=== PATIENT | female | born 1990 | race Caucasian/White ===

== ENCOUNTER → 2017-06-22 | Outpatient (CLI) | payer OTHER ==
[2017-06-22 14:42] LABS: BASO % 0.2 %; BASO ABS # 0.03 K/uL (0-0.2); COMPLETE YES; EOS % 2.4 %; HEMATOCRIT 35.5 % (37-47); IG% 0.2 %; LYMPH % 22.9 %; LYMPH ABS # 3.04 K/uL (1.2-3.4); MEAN CELL VOLUME 82.9 fL (80-100); MEAN CORPUSCULAR HEMOGLOBIN 27.8 pg (25-34); MEAN CORPUSCULAR HGB CONC 33.5 g/dl (32-36); MEAN PLATELET VOLUME 9.3 fL (7.4-10.4); MONO % 6.7 %; NEUT % 67.6 %; PLATELET COUNT 306 K/uL (130-400); RED BLOOD COUNT 4.28 M/uL (4.2-5.4); WHITE BLOOD COUNT 13.28 K/uL (4.8-10.8)
[2017-06-25 04:29] LABS: CHLAMYDIA TRACH RNA*** NOT DETECTED (NOT DETECTED); GC (NEIS GONORRHOEAE)RNA** NOT DETECTED (NOT DETECTED)
== END | disposition home or self-care (01) ==
LOC: C.LAB1850 12:46
PROVIDERS: ATTEND Obstetrics & Gynecology
DX: Z34.01 Encounter for supervision of normal first pregnancy, first trimester (principal); Z3A.00 Weeks of gestation of pregnancy not specified

== ENCOUNTER → 2017-06-22 | Outpatient (CLI) | payer OTHER | LOC: C.PAPS 10:04 | PROVIDERS: ATTEND Obstetrics & Gynecology | DX: Z34.01 Encounter for supervision of normal first pregnancy, first trimester (principal); Z3A.00 Weeks of gestation of pregnancy not specified ==

== ENCOUNTER → 2017-08-05 | Outpatient (CLI) | payer OTHER ==
[~2017-08-05] MED LIST: DOCU-94 PO; FERR1TAB23; OMEP20TA PO; PRENTAB26 PO
== END | disposition home or self-care (01) ==
LOC: C.LAB1850 16:02
PROVIDERS: ATTEND Obstetrics & Gynecology
DX: Z34.02 Encounter for supervision of normal first pregnancy, second trimester (principal); R30.0 Dysuria

== ENCOUNTER → 2017-11-02 | Outpatient (CLI) | payer OTHER ==
[2017-11-02 13:08] LABS: HEMATOCRIT 31.9 % (37-47); HEMOGLOBIN 10.8 g/dL (12.0-16.0)
== END | disposition home or self-care (01) ==
LOC: C.LAB1850 11:16
PROVIDERS: ATTEND Obstetrics & Gynecology
DX: Z34.03 Encounter for supervision of normal first pregnancy, third trimester (principal)

== ENCOUNTER → 2017-12-28 | Outpatient (CLI) | payer OTHER | END | disposition home or self-care (01) | LOC: C.LABSPEC 11:50 | PROVIDERS: ATTEND Obstetrics & Gynecology | DX: Z34.03 Encounter for supervision of normal first pregnancy, third trimester (principal) ==

== ENCOUNTER 2018-01-05 02:46 | Inpatient (IN) | payer OTHER ==
[~2018-01-05] VITALS: Ht 149.9 cm; Wt 155.0 kg
[2018-01-05 03:39] VITALS: Ht 149.9 cm; Wt 155.0 kg
[2018-01-05] MEDS ORDERED: PRENTAB26 PO (03:40)
[2018-01-05] MEDS ORDERED: FERR1TAB23 (03:43)
[2018-01-05] MEDS ORDERED: DOCU-94 PO (03:43)
[2018-01-05] MEDS ORDERED: OMEP20TA PO (03:43)
[2018-01-05] MEDS ORDERED: NURSING VERBAL MED ORDER ONE ×2 (05:45)
[2018-01-05] MEDS ORDERED: BUTORPHANOL TARTRATE 1 MG/ML VIAL ONE (05:47)
[2018-01-05] MEDS ORDERED: LACTATED RINGER'S 1000ML 1,000 ML IV SCH (06:00)
[2018-01-05 06:02] LABS: HEMATOCRIT 35.6 % (37-47); HEMOGLOBIN 12.2 g/dL (12.0-16.0); MEAN CELL VOLUME 85.4 fL (80-100); MEAN CORPUSCULAR HEMOGLOBIN 29.3 pg (25-34); MEAN PLATELET VOLUME 9.7 fL (7.4-10.4); PLATELET COUNT 274 K/uL (130-400); RED CELL DISTRIBUTION WIDTH CV 13.7 % (11.5-14.5); RED CELL DISTRIBUTION WIDTH SD 42.6 fL (36.4-46.3)
[2018-01-05] MEDS ORDERED: BUPIVACAINE 0.25% 30 ML VIAL ONE (06:06)
[2018-01-05] MEDS ORDERED: EpHEDrine SULFATE INJ 50 MG/ML AMP ONE (06:06)
[2018-01-05] MEDS ORDERED: FENTANYL CITRATE INJ 50 MCG/1 ML 2 ML VIAL ONE (06:06)
[2018-01-05] MEDS ORDERED: FENTANYL 2MCG/ML ROPIV 1.25MG/ML 100ML BAG ONE (06:07)
[2018-01-05] MEDS ORDERED: LACTATED RINGER'S 1000ML 500 ML IV PRN ×2 (06:07→07:08)
[2018-01-05 06:08] LABS: MEAN CORPUSCULAR HGB CONC 34.3 g/dl (32-36)
[2018-01-05] MEDS ORDERED: NALOXONE HCL INJ 1 MG in SODIUM CHLORIDE 0.9% 1000ML 1,000 ML IV PRN ×4 (07:08)
[2018-01-05] MEDS ORDERED: NALOXONE HCL INJ 0.4 MG/1 ML VIAL/CARP IV PRN (07:15)
[2018-01-05] MEDS ORDERED: NALBUPHINE HCL INJ 10 MG/ML AMP IV PRN (07:15)
[2018-01-05] MEDS ORDERED: PROMETHAZINE HCL INJ 25 MG in SODIUM CHLORIDE 0.9% 50ML 50 ML IV PRN (07:15)
[2018-01-05] MEDS ORDERED: DiphenhydrAMINE HCL 50 MG/ML VIAL IV PRN (07:15)
[2018-01-05] MEDS ORDERED: ONDANSETRON INJ 2 MG/ML 2 ML VIAL IV PRN (07:15)
[2018-01-05] MEDS ORDERED: FENTANYL 2MCG/ML ROPIV 1.25MG/ML 100ML BAG EPI PRN (07:15)
[2018-01-05] MEDS ORDERED: EpHEDrine SULFATE INJ 50 MG/ML AMP IV PRN (07:15)
[2018-01-05] MEDS ORDERED: OXYTOCIN 30 UNITS/500ML NSS IV ONE (08:02)
[2018-01-05] MEDS ORDERED: ACETAMINOPHEN 325 MG TAB PO PRN (09:00)
[2018-01-05] MEDS ORDERED: MEASLES, MUMPS & RUBELLA VIRUS VIAL SQ. ONE (09:00)
[2018-01-05] MEDS ORDERED: LANOLIN OINT EXT PRN (09:00)
[2018-01-05] MEDS ORDERED: BENZOCAINE 20% AER SPR 82.5 GM CAN EXT PRN (09:00)
[2018-01-05] MEDS ORDERED: DIPHTHERIA/TETANUS/PERTUSSIS 0.5 ML SYR/VIAL IM. ONE (09:00)
[2018-01-05] MEDS ORDERED: SUPERCREAM 0.870 % 15GM JAR EXT PRN (09:00)
[2018-01-05] MEDS ORDERED: OXYCODONE/ACETAMINOPHEN 5-325 TAB PO PRN (09:00)
[2018-01-05] MEDS ORDERED: HYDROCORTISONE ACETATE 25 MG SUPP PR PRN (09:00)
[2018-01-05] MEDS ORDERED: OXYTOCIN 30 UNITS/500ML NSS IV PRN (09:00)
[2018-01-05] MEDS ORDERED: ACETAMINOPHEN/CODEINE 300/30MG TAB PO PRN ×2 (09:00)
--- NOTE | 2018-01-05 10:04 | Anesthesia Procedure Note ---
Anesthesia Epidural Removal Nt Date & Time January 05, 2018 at 10:03 Vital Signs Pain Intensity: 10.0 Notes Mental Status: alert / awake / arousable, participated in evaluation Nausea / Vomiting: adequately controlled Pain: adequately controlled Airway Patency, RR, SpO2: stable & adequate BP & HR: stable & adequate Hydration State: stable & adequate Neuraxial Anesthesia: was administered Anesthetic Complications: no major complications apparent, pt satisfied with anesthetic care Epidural: removed without complications, with tip intact
--- NOTE | 2018-01-05 10:38 | DELIVERY SUMMARY ---
DATE OF OPERATION: 01/05/2018 PREOPERATIVE DIAGNOSES: 1. Intrauterine at 37 and 5/7 weeks. 2. Active labor. POSTOPERATIVE DIAGNOSES: 1. Intrauterine at 37 and 5/7 weeks. 2. Active labor. 3. Terminal bradycardia. PROCEDURES: 1. Epidural anesthesia. 2. Vacuum-assisted vaginal delivery. 3. Second-degree perineal laceration with repair. SURGEON: Anita Guardado MD. ANESTHESIA: Epidural. ESTIMATED BLOOD LOSS: 300 mL. DESCRIPTION OF THE PROCEDURE: The patient presented to labor and delivery with contractions at 2-3 cm dilated. She was observed for 2 hours, rechecked and found to be 5 and 90. She was admitted and underwent an epidural anesthetic. She then progressed spontaneously to an anterior lip. After checking her for an anterior lip, the fetus had variables with contractions I checked her and she was found to be complete and +2 station. I encouraged the patient to push. During pushing, a terminal bradycardia to the 70s-80s was found that was not responsive to scalp stimulation, oxygen or fluids. Decision made to proceed with vacuum assist. Baby was in CHAD presentation. The bladder was drained of urine. Verbal consent was obtained from the patient and her . The vacuum was applied x3 with 3 pop-offs, and then with 4th push, she was able to deliver the vertex over an intact perineum. The rest of the infant was then delivered without difficulty. There was no nuchal cord. There was immediate cry. The infant was placed on the maternal abdomen for drying and attention. The cord was clamped and cut at 1 minute of life. Cord blood and gasses were obtained. Placenta was delivered spontaneously intact with a 3-vessel cord. Cervix, sulci and rectum were examined and found to be intact. A second-degree perineal laceration was repaired with 3-0 Vicryl in a normal standard fashion. One minute was 7, 5-minute pending. Hemostasis was obtained with dilute Pitocin and fundal massage. The baby was found to have an imperforate anus and so was transferred to the nursery. I attest to the content of the Intraoperative Record and any orders documented therein. Any exception s are noted below.
[2018-01-05 13:15] VITALS: BP 136/90; PULSE 116; TEMP 36.9
[2018-01-05] MEDS: IBUPROFEN 600 MG TAB PO PRN ×2 (13:36→19:31)
--- NOTE | 2018-01-05 14:42 | Discharge Instructions ---
Discharge Instructions Date of Service January 05, 2018. Admission Reason for Admission: LABOR Discharge Discharge Diagnosis / Problem: vaccuum assisted deliver Discharge Goals Goal(s): Routine recovery after delivery Medications Continue Dispensed Medications: supercream, dermaplast, lansinoh Activity Recommendations Activity Limitations: per Instructions/Follow-up section . Instructions / Follow-Up Instructions / Follow-Up ACTIVITY RECOMMENDATIONS: * Gradual return to full activity over the next 2-3 weeks. * No lifting - nothing heavier than baby over the next 2-3 weeks. * Do not engage in vigorous exercise, sexual activity or sports until cleared by your physician. * Do not drive or operate any motorized equipment until cleared by your physician. * You may shower/bathe daily. MEDICATIONS: For discomfort or pain, you may use Acetaminophen (Tylenol), Ibuprofen (Advil), or Naproxen (Aleve) following the package directions. For constipation you may use Colace following the package directions. BREAST CARE: If you are not breast feeding: * Wear a supportive bra 24 hours a day for one to two weeks. * Avoid stimulating your breasts and nipples as much as possible during the first few weeks after delivery. * When taking a shower, have the warm water hit your back, not breasts. * When your breasts feel full, apply ice packs. Usually three to four times a day helps ease the discomfort. * Take a mild pain medication (Tylenol / Motrin) when you are uncomfortable. If breast feeding: * Use breast milk to lubricate nipples. Lansinoh cream may be used for sore nipples. You do not need to remove cream prior to breast feeding. If using a different brand of cream, check the label for directions regarding removal of cream prior to nursing. * Wear a supportive bra. * If having problems with breasts or breast feeding, call a internal audit consultant or your health care provider. EPISIOTOMY CARE: After delivery, if you have an episiotomy (stitches), the following steps will ease discomfort and aid healing. * For the first 24 hours after delivery, place ice packs next to your episiotomy to help reduce swelling. * After the first 24 hour-period, sitz baths, either portable or in the tub, are suggested. A shower with a shower arm sprayed over the episiotomy may be comforting. * Vilma care should be done after each voiding and bowel movement. Squirt warm water from a plastic bottle over the perineum (region of the body between the anus and urinary opening) and pat dry. * Use Dermoplast to ease discomfort. Shake container. [place] directly over the episiotomy. Place a Tucks on a clean sanitary pad next to your episiotomy. SPECIAL CARE INSTRUCTIONS: When you are discharged from the hospital, it is important for you to follow the instructions listed below: * During the first week at home, you should be able to care for yourself and your baby. In addition, the usual light household activities are encouraged. * Limit your activities to the way you feel. Do not try to clean the house or move furniture. Be sensible. * If you actively engage in sports and have done so up until the time of your delivery, you may resume these activities as soon as you feel able. This may take up to one month or even longer. Use good judgment. * Continue to take your vitamins for at least six weeks after the of your baby. * Your diet need not be limited unless you were on a special diet before your delivery. Breast-feeding mothers need around 2500 calories per day and at least 64-80 ounces of fluid per day (8 to 10 glasses). * You should eat foods from the four major food groups. Crash diets or fad diets are to be avoided. Eating lean meats, fresh fruits and vegetables, low-fat dairy products, high fiber foods and a regular exercise program, will help you get back to your pre- weight without putting your health at risk. * Constipation is sometimes a problem after delivery. Take a mild laxative as needed. If breast feeding, Milk of Magnesia is acceptable to use. You may use a suppository or Fleets enema if no episiotomy. * A daily shower or tub bath is suggested. Be sure to thoroughly and gently dry the perineum. * A bloody vaginal discharge will usually continue until around four weeks post . A small amount of bleeding may continue for as long as six weeks. Vaginal discharge changes from the bright red bleeding after delivery to pink then brownish and finally yellowish-pink before becoming white and disappearing. * Bleeding may increase with activity. Your first period may come in 4-8 weeks. If you are breast feeding, your period may be delayed even longer. * [place] (sex) can begin whenever both you and your partner feel comfortable and do not have any form of genital infection. It is recommended that you wait at least six weeks for internal and external healing to occur. If you have questions, please talk to your health care practitioner. A condom should be used to prevent infection and . * Foreplay, gentle intercourse and lubrication is very important the first several times to prevent pain. A water-based lubricant such as K-Y jelly or Astroglide may be used. * If you have RH negative blood and your baby is RH positive, you will receive RHOGAM by injection prior to discharge. The nurse will give you a card to keep with you that has the date and place that you received RHOGAM after delivery. * During your care, you had a Rubella screen done to check for the presence of rubella antibodies in your blood. If your test was negative, you will receive a Rubella vaccine prior to discharge. This vaccine may cause a fever, soreness at the injection site and flu-like symptoms. If these symptoms persist, notify your health care practitioner. is not advised for one month after a Rubella vaccine. * Verbalizes understanding of car seat law as reviewed with patient nursing. * Car Seat hand-out given and reviewed with patient by nursing. * Shaken baby information reviewed with patient by nursing. Call you doctor if: * Heavy bleeding (saturating several pads an hour) or passing clots the size of your fist. * A fever >101 degrees F (38.3 degrees C) on two occasions four hours apart and /or chills. * Unusual pain in the pelvic or vaginal areas. * "Baby Blues" lasting longer than two weeks. If you have any questions or concerns, call your health care practitioner at . FOLLOW UP VISIT: * Please call the office at to schedule a 6 week examination. It is important you keep this appointment. It is important for you to make arrangements for either yearly or twice yearly check-ups thereafter. Current Hospital Diet Patient's current hospital diet: Regular OB Diet Discharge Diet Recommended Diet: Regular OB Diet Pending Studies Studies pending at discharge: no Medical Emergencies . Who to Call and When: Medical Emergencies: If at any time you feel your situation is an emergency, please call [phone] immediately. . Non-Emergent Contact Non-Emergency issues call your: [employer] . . "Provider Documentation" section prepared by Anel Pardo. .
[2018-01-05 15:40] VITALS: BP 109/77; PULSE 102; TEMP 36.9
[2018-01-05] MEDS ORDERED: DOCUSATE SODIUM 100 MG CAP PO SCH (20:00)
[2018-01-05 20:30] VITALS: BP 123/84; PULSE 90; TEMP 36.5
[2018-01-05 21:15] VITALS: BP_DIAS 84; PULSE 90; TEMP 36.5
[2018-01-06] MEDS ORDERED: PRENATAL VITAMIN TAB PO SCH (08:00)
== END 2018-01-05 21:15 | disposition home or self-care (01) | DRG 775 ==
LOC: C.OPB 02:46 → C.LD 02:46 → C.OPB 05:38 → C.OBG 12:29 → EDSTATUS 01-21 02:45
PROVIDERS: ADMIT Obstetrics & Gynecology; ATTEND Obstetrics & Gynecology
PROC: 0KQM0ZZ Repair Perineum Muscle, Open Approach (ICD-10-PCS; principal; 2018-01-05)
PROC: 10D07Z6 Extraction of Products of Conception, Vacuum, Via Natural or Artificial Opening (ICD-10-PCS; principal; 2018-01-05)
DX: O76 Abnormality in fetal heart rate and rhythm complicating labor and delivery (principal); O70.1 Second degree perineal laceration during delivery; Z37.0 Single live birth; Z3A.37 37 weeks gestation of pregnancy

== ENCOUNTER 2022-02-02 20:11 | Inpatient (IN) ==
[2022-02-03] MEDS ORDERED: PENICILLIN G POTASSIUM 6 MU in DEXTROSE 5% 250 ML IV STA (01:57)
[2022-02-03] MEDS ORDERED: OXYTOCIN 30 UNITS/500 ML BAG IV PRN ×2 (01:57→10:30)
[2022-02-03] MEDS ORDERED: ePHEDrine sulfate 50 MG/ML AMP ONE (02:21)
[2022-02-03] MEDS ORDERED: fentaNYL citrate 100 MCG/2 ML VIAL ONE (02:22)
[2022-02-03] MEDS ORDERED: fentaNYL 2MCG/ML ROPIVACAINE 1.25MG/ML 100 ML BAG EPI ONE (02:22)
[2022-02-03] MEDS ORDERED: SODIUM CHLORIDE 0.9% INJ 10 ML VIAL ONE (02:22)
[2022-02-03] MEDS ORDERED: BUPIVACAINE 0.25% 30 ML VIAL ONE (02:22)
[2022-02-03 02:34] LABS: Hematocrit (blood only) 35.2 % (37-47); Mean Corpuscular Hemoglobin 29.9 pg (25-34); Mean Corpuscular Hgb Conc 34.1 g/dL (32-36); Mean Corpuscular Volume 87.8 fL (80-100); Mean Platelet Volume 9.7 fL (7.4-10.4); Platelet Count 282 K/uL (130-400); RDW Coefficient of Variation 13.1 % (11.5-14.5); RDW Standard Deviation 42.4 fL (36.4-46.3); Red Blood Count 4.01 M/uL (4.2-5.4); White Blood Count 16.74 K/uL (4.8-10.8)
[2022-02-03] MEDS: LACTATED RINGER'S 1,000 ML IV PRN ×2 (02:40→03:43)
[2022-02-03] MEDS ORDERED: NALBUPHINE HCL INJ 10 MG/ML AMP IV PRN (02:50)
[2022-02-03] MEDS ORDERED: diphenhydrAMINE 50 MG/ML VIAL IV PRN (02:50)
[2022-02-03] MEDS ORDERED: NALOXONE HCL 1 MG in SODIUM CHLORIDE 0.9% 1000ML 1,000 ML IV PRN (02:50)
[2022-02-03] MEDS ORDERED: fentaNYL 2MCG/ML ROPIVACAINE 1.25MG/ML 100 ML BAG EPI PRN (02:50)
[2022-02-03] MEDS ORDERED: NALOXONE HCL 0.4 MG/1 ML VIAL/CARP IV PRN (02:50)
[2022-02-03] MEDS ORDERED: ePHEDrine sulfate 50 MG/ML AMP IV PRN (02:50)
--- NOTE | 2022-02-03 02:50 | Anesthesiology Consultation ---
Date of Service February 03, 2022 Assessment & Plan (1) Encounter for pre-operative examination: Chart Review Chart Review: Acceptable Risk for Surgery and Patient NOT seen in Pre Admission Testing Consults Requested none History Height/Weight Height: 5 ft Weight: 70.76 kg Allergies Allergy/AdvReac Type Severity Reaction Status Date / Time No Known Allergies Allergy Verified 01/29/22 11:46 No Known Drug Allergies Allergy Uncoded 09/07/21 11:13 Medications Home Medications Medication Instructions Recorded Confirmed Last Taken omeprazole 20 mg tablet,delayed 20 mg PO DAILY tab 03/13/19 02/02/22 02/02/22 06:00 release prenat.vits,mahamed,rag-hnus-byhfo 1 tab PO DAILY 07/13/21 02/02/22 02/02/22 06:00 docusate sodium 50 mg capsule 50 mg PO DAILY PRN 12/16/21 02/02/22 02/02/22 06:00 ferrous sulfate 325 mg (65 mg 325 mg PO DAILY 12/16/21 02/02/22 02/02/22 06:00 iron) tablet,delayed release Active Medications Generic Name Dose Route Start Last Admin Trade Name Freq PRN Reason Stop Dose Admin Lactated Ringer's 1,000 mls @ 125 mls/hr 02/03/22 01:57 02/03/22 02:40 Lr IV 02/05/22 01:56 999 mls/hr .Q8H PRN Administration L&D Protocol Protocol Penicillin G Potassium 6 mu/ 262 mls @ 262 mls/hr 02/03/22 01:57 02/03/22 02:42 Dextrose IV 02/03/22 02:56 262 mls/hr NOW STA Administration Past Medical History Medical History Acid reflux Encounter for gynecological examination Gastritis History of chicken pox History of rubella vaccination Past Family History Family History Father Diabetes Hypertension Mother Diabetes Hypertension Aunt Down syndrome Liver cancer Son Congenital imperforate anus Denies family history of Ovarian cancer Breast cancer Colorectal cancer Past Surgical History Surgical History No pertinent past surgical history Social History Smoking Status: Never smoker Hx Alcohol Use: No Hx Substance Use: No Physical Exam Vital Signs Last Vital Signs Temp 98.4 F 02/02/22 21:20 Pulse 111 H 02/03/22 02:48 Resp 20 02/02/22 21:20 BP 124/78 02/03/22 02:05 Pulse Ox 100 02/03/22 02:48 Testing Laboratory Results 02/03/22 02:18
[2022-02-03] MEDS ORDERED: PENICILLIN G POTASSIUM 3 MU in DEXTROSE 5% 100 ML IV SCH (06:00)
[2022-02-03] MEDS ORDERED: DIPHTHERIA/TETANUS/PERTUSSIS 0.5 ML SYR/VIAL IM ONE (10:30)
[2022-02-03] MEDS ORDERED: BENZOCAINE 20% AER SPR 82.5 GM CAN EXT PRN (10:30)
[2022-02-03] MEDS ORDERED: HYDROCORTISONE ACETATE 25 MG SUPP PR PRN (10:30)
[2022-02-03] MEDS ORDERED: bisacodyL 10 MG SUPP PR PRN (10:30)
[2022-02-03] MEDS ORDERED: oxyCODONE/ACETAMINOPHEN 5mg/325mg TAB PO PRN (10:30)
[2022-02-03] MEDS ORDERED: OXYTOCIN 10 UNITS/ML VIAL IM ONE (10:45)
--- NOTE | 2022-02-03 11:06 | Delivery Summary ---
Vaginal Delivery Summary Date of Service February 03, 2022 Vaginal Delivery Summary and 1st Degree LAC Patient is a 31-year-old 2 para 1-0-01 female who presented in active labor at 38 weeks gestation. Membranes ruptured spontaneously for clear fluid. She requested epidural analgesia which was effective. She progressed to full dilation with the urge to push. She pushed effectively over intact perineum for delivery of a viable female . After the head delivered the right arm presented and was delivered before delivering the rest of the . The was then placed on the mother's abdomen for further attention and drying. There was poor respiratory effort initially, so the cord was clamped and cut prior to 1 minute of life. She was taken to the baby bed and with stimulation and warming she was then vigorous and crying. The placenta was then expressed with a three-vessel cord. First-degree perineal laceration was repaired with 3- 0 chromic in the usual fashion. bleeding was controlled with fundal massage and IM Pitocin after her current IV had infiltrated. Estimated blood loss was 200 cc. Mother and infant were doing well after delivery. [facility] [place] Vaginal Delivery Charge Delivery Type Details: and 1st Degree LAC
--- NOTE | 2022-02-03 11:29 | Anesthesia Procedure Note ---
Date of Service February 03, 2022 Anesthesia Post Epidural Note Vital Signs Vital Signs: Temp Pulse Resp BP Pulse Ox 36.5 C 102 H 20 106/73 60 L 02/03/22 07:07 02/03/22 11:20 02/03/22 07:07 02/03/22 11:20 02/03/22 10:04 Pain Intensity Abdomen: Pain Intensity: 0 Notes Mental Status: alert / awake / arousable and participated in evaluation Nausea / Vomiting: adequately controlled Pain: adequately controlled Airway Patency, RR, SpO2: stable & adequate BP & HR: stable & adequate Hydration State: stable & adequate Neuraxial Anesthesia: was administered and sensory block is resolving Anesthetic Complications: no major complications apparent and Pt Satisfied with anesthetic care Epidural: Removed without complications and With tip intact
[2022-02-03] MEDS: IBUPROFEN 600 MG TAB PO PRN ×2 (14:23→18:28)
[2022-02-03] MEDS ORDERED: OXYTOCIN 10 UNITS/ML VIAL ONE (14:44)
[2022-02-03] MEDS: ACETAMINOPHEN 325 MG TAB PO PRN ×2 (16:31→21:58)
[2022-02-03] MEDS: DOCUSATE SODIUM 100 MG CAP PO SCH (21:11)
[2022-02-04] MEDS: IBUPROFEN 600 MG TAB PO PRN ×2 (01:13→09:04)
[2022-02-04 07:35] LABS: Mean Corpuscular Hemoglobin 29.4 pg (25-34); Mean Corpuscular Hgb Conc 33.3 g/dL (32-36); Mean Corpuscular Volume 88.2 fL (80-100); Mean Platelet Volume 9.7 fL (7.4-10.4); Platelet Count 229 K/uL (130-400); RDW Coefficient of Variation 13.3 % (11.5-14.5); RDW Standard Deviation 43.1 fL (36.4-46.3); Red Blood Count 3.74 M/uL (4.2-5.4); White Blood Count 19.84 K/uL (4.8-10.8)
[2022-02-04] MEDS ORDERED: PRENATAL VITAMIN 1 TAB PO SCH (08:00)
--- NOTE | 2022-02-04 08:08 | Obstetrical Progress Note ---
Date of Service February 04, 2022 Assessment & Plan (1) Encounter for care and examination after delivery: satisfactory progress would like to be discharged later today if baby discharged f/u 6 weeks Subjective Ambulation: ambulating normally Voiding: no voiding problems Passing Gas:: Yes Diet Tolerance:: regular diet Lochia:: Small Feeding Type:: breast feeding Review of Systems All systems reviewed & are unremarkable except as noted in HPI & below Physical Exam Constitutional WD/WN, vitals as above Psychiatric A+Ox3, euthymic affect Genitourinary OB Exam Abdomen: + fundal height Fundus: + firm and + relation to umbilicus (at u) Results & Data ([facility]) Vital Signs (Past 12 Hours) Vital Signs Temp Pulse Resp BP Pulse Ox 02/04/22 04:50 97.7 F 92 H 16 90/57 L 98 02/03/22 23:00 97.5 F L 93 H 16 97/59 L 99 02/03/22 21:05 97.7 F 91 H 16 121/82 100
[2022-02-04] MEDS: DOCUSATE SODIUM 100 MG CAP PO SCH (08:30)
[2022-02-04] MEDS: ACETAMINOPHEN 325 MG TAB PO PRN (10:42)
[2022-02-04] MEDS ORDERED: bisacodyL 5 MG TABEC PO SCH (20:00)
== END 2022-02-04 16:25 | disposition home or self-care (01) | DRG 807 ==
LOC: 4S1 20:11 → OPB 20:11 → 4S1 20:12 → 4E2 02-03 14:21
DX: Z86.19 Personal history of other infectious and parasitic diseases; Z3A.38 38 weeks gestation of pregnancy; O70.0 First degree perineal laceration during delivery; O99.62 Diseases of the digestive system complicating childbirth; K21.9 Gastro-esophageal reflux disease without esophagitis; Z37.0 Single live birth